=== PATIENT | female | born 1995 ===

== ENCOUNTER 2018-07-18 18:45 | Emergency (ER) | payer SELFPAY ==
[2018-07-18 18:46] VITALS: BMI 28.9
--- NOTE | 2018-07-18 19:48 | C.PDOC ---
History Of Present Illness 23-year-old female presents to the ED for evaluation of a worsening rash on the feet bilaterally for 4 days. Patient reports her son was seen in the ED, treated and evaluated for ringworm which has since resolved. She denies fever, nausea, vomiting, diarrhea, and any other associated symptoms. Time Seen by Provider: 07/18/18 19:22 Chief Complaint (Nursing): Abnormal Skin Integrity History Per: Patient History/Exam Limitations: no limitations Onset/Duration Of Symptoms: Days Current Symptoms Are (Timing): Still Present Past Medical History Reviewed: Historical Data, Nursing Documentation, Vital Signs Vital Signs: Last Vital Signs Temp 98.6 F 07/18/18 19:06 Pulse 62 07/18/18 19:06 Resp 16 07/18/18 19:06 BP 111/68 07/18/18 19:06 Pulse Ox 99 07/18/18 19:06 - Medical History PMH: Sexually Transmitted Disease (history of chlamydia 2.5 years ago) Denies: Anemia, HTN, Hyperthyroidism, Hypothyroidism - [facility] Procedures DELIVERY OF PRODUCTS OF CONCEPTION, EXTERNAL APPROACH (09/26/15) DRAINAGE OF AMNIOTIC FL, THERAP FROM POC, VIA OPENING (09/26/15) REPAIR FEMALE PERINEUM, EXTERNAL APPROACH (09/26/15) Family History: States: Unknown Family Hx - Social History Hx Tobacco Use: No Hx Alcohol Use: No Hx Substance Use: No - Immunization History Hx Tetanus Toxoid Vaccination: No Hx Influenza Vaccination: No Hx Pneumococcal Vaccination: No Review Of Systems Constitutional: Negative for: Fever Gastrointestinal: Negative for: Nausea, Vomiting, Diarrhea Skin: Positive for: Rash (over the feet. ) Physical Exam - Physical Exam Appears: Well, Non-toxic, No Acute Distress Skin: Warm, Dry, Rash (scattered annular rash with scaling and excoriation. ) Head: Atraumatic, Normacephalic Eye(s): bilateral: Normal Inspection Oral Mucosa: Moist Tongue: Normal Appearing, No Swelling Lips: Normal Appearing, No Swelling Throat: No Erythema, No Exudate Neck: Normal ROM, Supple Chest: Symmetrical Extremity: Normal ROM, No Swelling Neurological/Psych: Oriented x3, Normal Speech Gait: Steady ED Course And Treatment O2 Sat by Pulse Oximetry: 99 (RA) Pulse Ox Interpretation: Normal Medical Decision Making Medical Decision Making: Progress/Update: Patient stable for discharge home. Prescribed Nizoral. Patient was instructed to thoroughly clean and wash all linen. Disposition - Disposition Referrals: [facility] [Outside] [facility] [employer] [facility] [Outside] Disposition: HOME/ ROUTINE Disposition Time: 19:51 Condition: STABLE Additional Instructions: Wash all sheets, towels and linen after treatment. Use the cream for a full 2-3 weeks. Follow up with the medical doctor/clinic if there is no resolution. Return if worsened. Prescriptions: Ketoconazole [Nizoral] 120 ml TP BID #1 shampoo Ketoconazole 2% Cr [Nizoral] 60 gm EXT BID #3 tube Instructions: Ringworm (DC) Forms: [employer] (Thai) - Clinical Impression Clinical Impression: Tinea corporis - PA / [employer] / Resident Statement MD/DO has reviewed & agrees with the documentation as recorded. - Scribe Statement The provider has reviewed the documentation as recorded by the Scribe (Jaja Henry) All medical record entries made by the Scribe were at my direction and personally dictated by me. I have reviewed the chart and agree that the record accurately reflects my personal performance of the history, physical exam, medical decision making, and the department course for this patient. I have also personally directed, reviewed, and agree with the discharge instructions and disposition.
[2018-07-19 01:07] VITALS: BP 110/70; PULSE 68; RESP 20; TEMP 98.6; O2SAT 99
== END 2018-07-18 20:08 | disposition home or self-care (01) ==
LOC: C.ER 18:45
DX: B35.4 Tinea corporis (principal)